=== PATIENT | female | born 1955 | race Caucasian/White ===

== ENCOUNTER 2025-03-04 07:48 | Day surgery (SDC) | payer MEDICARE ==
--- NOTE | 2025-03-02 12:05 | ELECTROCARDIOGRAPH REPORT ---
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 Kenroy Mcintosh Measurements Intervals Ursa Rate: 66 P: 49 MI: 145 QRS: 84 QRSD: 102 T: 75 QT: 431 QTc: 452 Interpretive Statements Sinus rhythm Borderline right axis deviation Electronically Signed On 03-02-2025 19:57:[address] Kenroy Mcintosh Please click the below link to view image of tracing.
[2025-03-02 12:45] LABS: MEAN PLATELET VOLUME 8.6 FL (7.4-10.4); PRE OP HEMATOCRIT 42.6 % (35.0-45.0); PRE OP HEMOGLOBIN 15.2 g/dL (12.0-16.0); PRE OP PLATELET COUNT 266 X10'3 (140-440); PRE OP WHITE BLOOD COUNT 8.6 10'3 (4.8-10.8); RED CELL DISTRIBUTION WIDTH 13.1 % (11.5-14.5)
[2025-03-02 13:41] LABS: CREATININE 0.60 MG/DL (0.40-0.90); PRE OP BILIRUB, TOTAL 0.8 MG/DL (0.0-1.0); TOTAL CARBON DIOXIDE 26.6 MMOL/L (24-32); eGFR > 90 ML/MIN
[2025-03-02 14:32] LABS: PRE OP ALT 33 U/L (30-65); PRE OP ANION GAP 11 (8-16); PRE OP POTASSIUM 3.9 MMOL/L (3.4-5.1); PRE OP SODIUM 140 MMOL/L (135-145)
[2025-03-02 14:43] LABS: PRE OP AST 24 U/L (10-37)
[2025-03-02 14:48] LABS: PRE OP GLUCOSE 115 MG/DL (70-104)
[~2025-03-04] VITALS: Ht 167.6 cm; Wt 68.0 kg
[2025-03-04] VITALS (14 sets, daily range): BP systolic 113–135; BP diastolic 69–79; PULSE 65–93; RESP 9–18; TEMP 96.3; O2SAT 90–98
[~2025-03-04 07:48] MED LIST: ATOR-2 PO; CHOL100046 PO; CITA40TA17 PO; EZET10TA6 PO; FISH1CAP15 PO; MULT-1085 PO; NICO-731 TOP; UBID100C45 PO
[2025-03-04] MEDS: ceFAZolin 2gm/dext,iso 50mL 50 ML IV ONE (08:18)
[2025-03-04] MEDS: ringers solution, lacted 1,000 ML IV SCH (08:48)
[2025-03-04] MEDS ORDERED: LIDOcaine 1% (10mg/ml)w/preservative inj. 20ml MDV ONE (10:26)
[2025-03-04] MEDS ORDERED: BUPIVAcaine/PF 2.5mg/ml (0.25%) 10ml vial ONE ×2 (10:27)
[2025-03-04] MEDS ORDERED: midazolam 1 mg/ML 2ml injection ONE (10:44)
[2025-03-04] MEDS ORDERED: fentaNYL/PF 50MCG/1 ML 2ML syringe ONE (10:44)
[2025-03-04] MEDS ORDERED: LIDOcaine 1%/PF 5ML 10 MG/ML VIAL ONE ×2 (10:51→10:52)
[2025-03-04] MEDS ORDERED: propofol inj 20 ML IV ONE ×2 (10:51→10:52)
[2025-03-04] MEDS ORDERED: dexamethasone sod phosphate 4mg/ml inj. ONE (10:52)
[2025-03-04] MEDS ORDERED: ondansetron/PF 4mg/2ml inj ONE (10:52)
[2025-03-04] MEDS ORDERED: acetaminophen 1,000mg/100ml IV 100 ML IV ONE (10:52)
[2025-03-04] MEDS: methylene blue (5mg/ml) 50mg/10ml ampul IV ONE (10:55)
[2025-03-04] MEDS: LIDOcaine 1% 30ml preserv. free vial IJ ONE (10:55)
[2025-03-04] MEDS: BUPIVAcaine/PF 2.5 mg/ml (0.25%) 30ml vial IJ ONE (10:55)
[2025-03-04] MEDS ORDERED: ondansetron/PF 4mg/2ml inj IV PRN (11:15)
[2025-03-04] MEDS ORDERED: HYDROmorphone/PF 0.2 MG/ML SYRINGE IV PRN ×2 (11:15)
[2025-03-04] MEDS ORDERED: ringers solution, lacted 1,000 ML IV SCH (11:15)
[2025-03-04] MEDS ORDERED: labetalol 20mg/4ml (5mg/ml) syringe IV PRN (11:15)
[2025-03-04] MEDS ORDERED: hydrALAZINE 20mg/ml inj. IV PRN (11:15)
[2025-03-04] MEDS ORDERED: ATROPINE SULFATE 0.4 MG/ML injection (OR only) ONE (11:43)
[2025-03-04] MEDS ORDERED: ePHEDrine 50MG/ML INJ. ONE (11:44)
[2025-03-04] MEDS: fentaNYL/PF 50MCG/1 ML 2ML syringe IV PRN ×2 (12:53→13:31)
--- NOTE | 2025-03-04 13:17 | OPERATIVE REPORT ---
Operative Report Providers to CC CC: LUISA CUENCA DO ~ Date of Procedure: Mar 04, 2025 Pre-Operative Diagnosis: Left breast cancer Post-Operative Diagnosis SAME as PRE-Op Procedure Performed Left breast wire localized lumpectomy at 10:30 4 cm from the nipple and 10:30 10 cm from nipple and left axillary sentinel lymph node biopsy, reading of specimen radiograph Surgeon: Dr. Luisa Cuenca [employer] Application Developer Teresa Acosta PA-C Anesthesiologist: Cristobal Tompkins Type of Anesthesia: General Findings: Left breast lumpectomy 10:30 4 cm from the nipple tracker and clip identified and left breast lumpectomy 10:30 10 cm from the nipple tracker only identified, left axillary sentinel lymph node biopsy Complications None Prosthetics\Implants used: None Estimated Blood Loss: Less than 5 mL Specimen Removed: Left breast wire localized lumpectomy at 10:30 4 cm from the nipple tracker suture marked short superior long lateral double deep, anterior margin for 10:30 4 cm from the nipple suture cameron final margin, left breast lumpectomy 10:30 10 cm from the nipple suture marked short superior long lateral double deep Description of Procedure: Caro is a 69-year-old female diagnosed with invasive lobular carcinoma in the upper inner breast two locations at 10:30 a.m.. She was seen and evaluated by myself in the office we discussed the risks and benefits and alternatives to breast conservation. We did discuss her surgical options of mastectomy versus lumpectomy. Informed consent was obtained. Patient was seen in the preoperative holding area by myself and the anesthesiologist. The left breast was marked with my initials in the upper inner breast. She had an IV placed, SCDs to lower extremities and IV antibiotics seen at the bedside. She was taken to the OR placed on table in supine position with the arms extended. General anesthesia was administered with an LMA. The left breast was scanned with the pintuition probe. I also injected 3 mL of methylene blue dye at the 3 o'clock position subareolar massaged for 4 minutes. I scanned the breast in the axilla with the gamma probe. I identified the hot spot also marked the skin. Patient was prepped and draped in a sterile fashion. A time-out was performed and agreed upon. I made a proposed incision in the upper inner breast between the two designated spots. I injected 1% lidocaine and made an incision. I dissected through the deep dermal layer into the breast tissue. I placed in retractors in the cavity for visualization and excised the superior lump 1st with the guidance of the pintuition probe. The specimen was removed and placed on the specimen radiograph board. The pin to admission tracker had dislodged from the cavity. The specimen was imaged. The 2nd tracker marker was not identified. It was placed in formalin. The 2nd specimen was completely excised inferiorly. It was placed in the specimen radiograph board and imaged. The clip and tracker were identified. The cavity was irrigated and hemostasis was achieved with Bovie electrocautery. All specimens were placed in formalin. I turned my attention to the axillary sentinel lymph node biopsy. May my proposed incision with a marking pen. Made the incision with a 15 blade and dissected through the deep dermal layer into the axillary space. I subsequently dissected through the axillary fascia. A hot blue lymph node was identified it was completely excised. And removed off the cavity and placed in formalin. The ca vity was copiously irrigated and hemostasis was achieved with Bovie cautery in the axillary fascia was closed with 3-0 Vicryl suture. The incision was closed with 3-0 Vicryl suture and 4-0 Monocryl running subcuticular stitch. The breast cavity was reapproximated with 3-0 jennifer Vicryl suture. Janice was placed in the cavity prior to that to assist with hemostasis. The skin was closed with 3-0 Vicryl suture and 4-0 Monocryl running subcuticular stitch. Patient was taken to recovery in stable condition. Counts repoted as correct: Yes LUISA CUENCA DO Mar 04, 2025 13:17
--- NOTE | 2025-03-11 12:10 | PATHOLOGY REPORT ---
[facility] [address] [place] [address] SURGICAL PATHOLOGY REPORT CaseNumber: [id number] Surgeon:Carolina Cline M.D. CLINICAL INFORMATION CLINICAL INFORMATION: The patient has not had neoadjuvant therapy. DIAGNOSIS DIAGNOSIS: A.BREAST, LEFT, 10:30, 10 CM FROM NIPPLE; LUMPECTO - A FEW MICRO-FOCI OF INVASIVE LOBULAR CARCINOMA IDENTIFIED, PAUL SCORE 5, WELL DIFFERENTIATED. - ANTERIOR MARGIN POSITIVE. - SEE MICROSCOPIC DESCRIPTION. DIAGNOSIS: B.BREAST, LEFT, 10:30, 4 CM FROM NIPPLE; LUMPECTOMY - INVASIVE LOBULAR CARCINOMA, PAUL SCORE 5, WELL DIFFERENTIATED. - NEOPLASM SPANS 0.9 X 0.3 CM. - MARGINS CLEAR, CLOSEST POSTERIOR AT 4 MM. - BACKGROUND LOBULAR NEOPLASIA. DIAGNOSIS: C.BREAST, LEFT, ANTERIOR MARGIN; RE-EXCISION - MARGIN CLEAR. DIAGNOSIS: D.LYMPH NODE, LEFT AXILLARY SENTINEL; EXCISION - ONE LYMPH NODE POSITIVE FOR METASTATIC CARCINOMA (03/26). COMMENT NOTE: Cases [id number] and case [id number] are reviewed. NOTE: Cases [id number] and case [id number] are reviewed. NOTE: Cases [id number] and case [id number] are reviewed. NOTE: Cases [id number] and case [id number] are reviewed. MICROSCOPIC DESCRIPTION A. BREAST, LEFT, 10:30, 10 CM FROM NIPPLE MICROSCOPIC DESCRIPTION: Thirty-four slides representing the entire tissue embedded from part A are examined. Though there are microscopic foci of fat necrosis, there is no overt significant inflammatory/reparative reaction to specifically indicate biopsy site identification. Please clinically correlate. There are a few (estimated 5) microfoci of invasive lobular carcinoma identified measuring up to slightly less than 2 mm. The ILC grows predominantly as Beninese file cords (tubule score 3), with minimal nuclear atypia (score 1), and no significant mitotic activity (score 1); for a Mansfield score 5, well differentiated. At least three, are largely cauterized and identified largely by pattern alone. One is at the red-inked anterior aspect, spanning 1 mm. One is within 1 mm of the posterior margin, and one is 2 mm from the inferior margin. The anterior to posterior margin distance is up to 2.5 cm. So presumably this represents a neoplasm (not forming a tumor mass) that spans at least 2.5 cm. In addition, lobular neoplasia is present, predominantly atypical lobular hyperplasia, with focal areas approaching criteria for what has historically been termed lobular carcinoma in situ. B. BREAST, LEFT, 10:30, 4 CM FROM NIPPLE MICROSCOPIC DESCRIPTION: Six slides from part B are examined. Present is breast tissue. The identified biopsy site zone show changes consistent with biopsy site reaction including organizing fat necrosis with fibrosis. Embedded within and adjacent to this, there is invasive lobular carcinoma which spans up to 0.9 x 0.3 cm and is 1 cm from the anterior margin and 4 mm from the posterior margin. Sections of the firm biopsy site reaction in the lateral and inferior margins sampling do not reveal invasive lobular carcinoma and therefore, the margins are presumed to be greater than 1 cm from those margins. In addition, there is background lobular neoplasia as previously described in part A. C. BREAST, LEFT, ANTERIOR MARGIN MICROSCOPIC DESCRIPTION: Eleven slides from part C are examined. Present is benign breast tissue. There are small foci of fat necrosis. At least one focus of fibrovascular reparative-type change consistent with biopsy site changes is identified. Carcinoma is not identified. D. LYMPH NODE, LEFT AXILLARY SENTINEL MICROSCOPIC DESCRIPTION: Three H&E stained slides and one immunoperoxidase study slide for AE1/AE3 from part D are examined. Present is a partially fat-replaced lymph node. There is a very small focus of metastatic carcinoma centered on the capsule/subcapsular space, spanning 0.4 x 0.3 mm consisting of approximately 80 cells. Immunoperoxidase study for AE1/AE3 highlights this epithelial population supporting the light microscopic impression. (st) GROSS DESCRIPTION A. BREAST, LEFT, 10:30, 10 CM FROM NIPPLE GROSS DESCRIPTION: Received in a container of formalin labeled with the patient's name, number, and "left breast wire localized lumpectomy" is a 46 g oriented excision of fibrofatty breast tissue which measures 5 x 8 x 2.5 cm. There are sutures found marking the superior, lateral, and posterior aspects of the excision. The superior margin is marked blue, the inferior margin is marked green, the medial margin is marked orange, the lateral margin yellow, the anterior margin is marked red, and the posterior margin is marked black. Sectioning fails to reveal a discrete mass lesion. A previous biopsy site is not identified. The specimen is entirely submitted from superior to inferior as A1- A34. The time at which the specimen was removed was 1119. The time at which the specimen was placed in formalin was 1130. (meb) B. BREAST, LEFT, 10:30, 4 CM FROM NIPPLE GROSS DESCRIPTION: Received in a container of formalin labeled with the patient's name, number, and "left breast wire localized lumpectomy 4 cm from nipple" is a 25 g oriented excision of fibrofatty breast tissue which measures 5 x 5.5 x 2.3 cm. There are sutures found marking the superior, lateral, and posterior aspects of the excision. The superior margin is marked blue, the inferior margin is marked green, the medial margin is marked orange, the lateral margin is marked yellow, the anterior margin is marked red, and the posterior margin is marked black. Sectioning reveals a previous biopsy site containing foreign material (two metallic clips) surrounded by a 4.5 x 3.5 x 2 ill-defined mcmullen firm area which approaches the anterior, posterior, inferior, and lateral margins. Sections are submitted as follows: B1) Superior marginB2) Inferior margin with firm areaB3) Medial marginB4) Lateral margin with firm areaB5-B6) Anterior and posterior margins with previous biopsy site The time at which the specimen was removed was 1119. The time at which the specimen was placed in formalin was 1130. (meb) C. BREAST, LEFT, ANTERIOR MARGIN GROSS DESCRIPTION: Received in a container of formalin labeled with the patient's name, number, and "left breast anterior margin" is a 10 gram oriented excision of fibrofatty breast tissue which measures 5 x 3.5 x 1 cm. There is a suture found marking the new margin. The new margin is marked black. S ectioning fails to reveal a discrete mass lesion. The specimen is entirely submitted as C1-C11. The time at which the specimen was removed was 1119. The time at which the specimen was placed in formalin was 1130. (meb) D. LYMPH NODE, LEFT AXILLARY SENTINEL GROSS DESCRIPTION: Received in a container of formalin labeled with the patient's name, number, and "node #1 left axilla" is a 2.2 x 1 x 1 cm blue- stained lymph node candidate. The specimen is bisected and submitted as D1. The time at which the specimen was removed was 1119. The time at which the specimen was placed in formalin was 1130. ([facility]) SYNOPTIC REPORT SYNOPTIC TEXT: Breast Panel results from Case [id number] Estrogen Receptor................. 100% Manually read, Clone EP1 Progesterone Receptor............. 90% Manually read, Clone [id number] Her-2/ricardo protein (4B5) .......... 1+ (Min) Manually read, Clone 4B5 Proliferation Marker (Ki67)....... 9% HER2 FISH results from Case [id number] Negative/Not Amplified HER2/WILLIAM-17 Ratio: 1.1 Avg number of HER2 Signals/Nucleus: 3.1 Breast Panel results from Case [id number] Estrogen Receptor................. >95% Manually read, Clone EP1 Progesterone Receptor............. >95% Her-2/ricardo protein (4B5) .......... 2+ Proliferation Marker (Ki67)....... 9% HER2 FISH results from Case [id number] Result: Negative/Not Amplified HER2/WILLIAM-17 Ratio: 1.1 Avg number of HER2 Signals/Nucleus: 1.6 INVASIVE CARCINOMA OF THE BREAST: Resection Specimen Procedure: Excision (less than total mastectomy) - 2 lumpectomies Specimen Laterality: Left Tumor Histologic Type: Invasive lobular carcinoma Histologic Grade (Paul Histologic Score): Glandular (Acinar) / Tubular Differentiation: Score 3 Nuclear Pleomorphism: Score 1 Mitotic Rate: Score 1 Overall Grade: Grade 1 (score 5) Tumor Size: Size of largest invasive focus cannot be determined - up to 2.5 to up to 10 cm -- not forming a discrete tumor Ductal Carcinoma In Situ (DCIS): Not identified Lymphatic and / or Vascular Invasion: Not identified Treatment Effect in the Breast: No known presurgical therapy Margins Margin Status for Invasive Carcinoma: Invasive carcinoma present at margin Margin(s) Involved by Invasive Carcinoma: Anterior - 1 mm Regional Lymph Nodes Regional Lymph Node Status: Tumor present in regional lymph node(s) Number of Lymph Nodes with Macrometastases: 0 Number of Lymph Nodes with Micrometastases: 1 Number of Lymph Nodes with Isolated Tumor Cells: 0 Size of Largest Cele Metastatic Deposit: 0.4 mm Extranodal Extension: Not identified Total Number of Lymph Nodes Examined (sentinel and non-sentinel): 1 Number of [place] Nodes Examined: 1 pTNM Classification (AJCC 8th Edition) pT Category: pT not assigned (cannot be determined based on available pathological information) T Suffix: (m) pN Category: pN1mi N Suffix: (sn) [facility] 2023 Q2 Release Electronically signed by: Hubert Haider M.D. 03/11/2025 11:35:00 AM
== END 2025-03-04 14:17 | disposition home or self-care (01) ==
LOC: PAS 07:48
PROVIDERS: ATTEND Surgery
DX: C50.212 Malignant neoplasm of upper-inner quadrant of left female breast (principal); C77.3 Secondary and unspecified malignant neoplasm of axilla and upper limb lymph nodes; F41.9 Anxiety disorder, unspecified; R94.31 Abnormal electrocardiogram [ECG] [EKG]; R73.09 Other abnormal glucose; Z87.891 Personal history of nicotine dependence; Z80.3 Family history of malignant neoplasm of breast
CPT/HCPCS: 19301; 36415; 38525; 38900; 76098; 80053; 82948; 85025; 93005; A4215; A4618; A6258; A7000; J0131; J1100; J2003; J2250; J2405; J2704; J3010; J3490; J7030; J7120; Q9968; Z7506; Z7508; Z7512; Z7610